=== PATIENT | male | born 1950 | race Caucasian/White ===

== ENCOUNTER 2016-08-20 17:32 | Inpatient (IN) | payer OTHER ==
[~2016-08-20] VITALS: Ht 167.6 cm; Wt 65.1 kg
[2016-08-20] MEDS ORDERED: ACETAMINOPHEN 500 MG TAB PO STA (17:52)
[2016-08-20] MEDS ORDERED: SODIUM CHLORIDE 0.9% 1000ML 1,000 ML IV STA ×2 (17:52)
[2016-08-20] MEDS ORDERED: IBUPROFEN 600 MG TAB PO STA (17:59)
[2016-08-20] MEDS ORDERED: ASPI81TA28 PO (18:34)
[2016-08-20] MEDS ORDERED: CALC625T13 PO (18:34)
[2016-08-20] MEDS ORDERED: GLUCTAB18 PO (18:34)
[2016-08-20] MEDS ORDERED: TURM1CAP4 PO (18:34)
[2016-08-20] MEDS ORDERED: MULT-506 PO (18:34)
[2016-08-20 18:42] LABS: HEMATOCRIT 36.5 % (42-52); MEAN CORPUSCULAR HEMOGLOBIN 31.6 pg (25-34); MEAN CORPUSCULAR HGB CONC 35.9 g/dl (32-36); MEAN PLATELET VOLUME 9.9 fL (7.4-10.4); PLATELET COUNT 200 K/uL (130-400); RED BLOOD COUNT 4.15 M/uL (4.7-6.1); WHITE BLOOD COUNT 13.22 K/uL (4.8-10.8)
[2016-08-20 18:49] LABS: URINE APPEARANCE CLOUDY (CLEAR); URINE COLOR DK YELLOW; URINE EPITHELIAL CELL AUTO >30 /lpf (0-5); URINE NITRITE NEG (NEG); URINE SPECIFIC GRAVITY 1.038 (1.000-1.030); UROBILINOGEN NEG (NEG)
[2016-08-20 18:52] LABS: INR 1.2 (0.9-1.1); PARTIAL THROMBOPLASTIN RATIO 1.1; PROTHROMBIN TIME (PATIENT) 12.5 SECONDS (9.0-12.0)
--- NOTE | 2016-08-20 18:53 | DIAGNOSTIC IMAGING REPORT ---
SINGLE VIEW CHEST CLINICAL HISTORY: Generalized weakness. FINDINGS: An AP, portable, upright chest radiograph is obtained. No prior studies are available for comparison at the time of dictation. The examination is degraded by portable technique and patient rotation. The heart is enlarged and there is atherosclerotic calcification of the thoracic aorta. The pulmonary vasculature is noncongested. There is left basilar airspace consolidation and a small left pleural effusion. Airspace opacities are also questioned at the right apex. No pneumothorax is seen. The bony thorax is grossly intact. There is moderate S-shaped thoracolumbar scoliosis. Calcific tendinopathy is noted in the left shoulder. IMPRESSION: 1. Cardiomegaly without radiographic evidence of congestive failure. 2. There is left basilar airspace consolidation and a small left pleural effusion. The appearance is typical for pneumonia. Clinical correlation will be required. 3. Airspace opacities are also questioned at the right apex. Radiographic follow-up to resolution is recommended. Electronically signed by: Lalo Gilbert M.D. 08/20/2016 6:52 PM Dictated Date/Time: 08/20/2016 6:50 PM
[2016-08-20 18:56] LABS: MANUAL MICROSCOPIC REQUIRED? NO; REVIEW REQ? YES; URINE BILIRUBIN NEG (NEG)
[2016-08-20 18:59] LABS: URINE MUCUS PRESENT (NONE PRSENT); URINE PATH CASTS 0-3 GRANULAR CASTS /lpf (0)
[2016-08-20 19:01] LABS: ALT/SGPT 17 U/L (12-78); AST/SGOT 10 U/L (15-37); BLOOD UREA NITROGEN 19 mg/dl (7-18); BUN/CREATININE RATIO 20.4 (10-20); CARBON DIOXIDE 26 mmol/L (21-32); CHLORIDE 100 mmol/L (98-107); CREATININE 0.92 mg/dl (0.60-1.40); GLUCOSE 107 mg/dl (70-99); MAGNESIUM 1.9 mg/dl (1.8-2.4); POTASSIUM 3.8 mmol/L (3.5-5.1); SODIUM 135 mmol/L (136-145)
[2016-08-20] MEDS ORDERED: LEVAQUIN 750MG / 150ML D5W IV STA (19:03)
[2016-08-20 19:12] LABS: ALKALINE PHOSPHATASE 79 U/L (45-117)
[2016-08-20 19:20] LABS: BASO % 0.1 %; BASO ABS # 0.01 K/uL (0-0.2); COMPLETE YES; IG% 0.4 %; LYMPH % 3.6 %; LYMPH ABS # 0.48 K/uL (1.2-3.4); MONO % 5.7 %; NEUT % 90.2 %
[2016-08-20] MEDS ORDERED: ONDANSETRON INJ 2 MG/ML 2 ML VIAL IV PRN (20:00)
[2016-08-20] MEDS ORDERED: SILD100T PO (20:07)
--- NOTE | 2016-08-20 20:11 | EMERGENCY ROOM VISIT NOTE ---
History Report prepared by Kirill: Ron Schafer Under the Supervision of: Dr. Jasper Davis M.D. First contact with patient: 17:48 Chief Complaint: FLU LIKE SX Stated Complaint: FLU LIKE MUCUS History of Present Illness The patient is a 66 year old male who presents to the Emergency Room with complaints of persistent flu-like symptoms for the past four days. The patient complains of fevers up to 103.5. He has been taking Tylenol, which brings the fevers down to around 101. His last dose was at 1630 this afternoon. He has not had any Ibuprofen. The patient also complains of generalized body aches, headaches, neck pain, sore throat, chills, and a productive cough. The cough produces yellow phlegm. The patient saw white spots in the back of his throat with a flashlight. As per , the patient appeared confused earlier today. His fever was 103 at that time. The patient noted that he was confused while working on a word puzzle and had to put it down. Patient denies LOC, diaphoresis , visual changes, chest pain, breathing difficulties, nausea, vomiting, abdominal pain, back pain, melena, hematochezia, urinary symptoms, numbness, weakness, lymphadenopathy, rash, or other complaints. The patient had a herniorrhaphy on July 16. Source of History: patient, spouse/significant other Onset: four days ago Position: other (global) Quality: other (flu-like symptoms) Timing: other (persistent) Associated Symptoms: + chills, + cough, + fevers, + headache, + neck pain, + sorethroat Review of Systems See HPI for pertinent positives and negatives. A total of ten systems were reviewed and were otherwise negative. Past Medical & Surgical Medical Problems: (1) Bilateral pneumonia (2) Prostate CA Surgical Problems: (1) H/O prostatectomy (2) S/P herniorrhaphy Family History Cancer Heart disease Social History Smoking Status: Former Smoker Marital Status: Housing Status: lives with family Occupation Status: retired Current/Historical Medications Scheduled Aspirin (Aspirin Ec), 81 MG PO DAILY Calcium Polycarbophil (Fiber Tabs), 625 MG PO WM Glucosamine-Chondroitin (Osteo Bi-Flex Regular Str), 1 TAB PO Q 4-DAYS Multivitamin (Multivitamin), 1 TAB PO DAILY Turmeric (Curcuma Longa) (Turmeric), 500 MG PO DAILY Allergies Coded Allergies: No Known Allergies (Unverified , NONE, 12/13/08) Physical Exam Vital Signs Date Time Temp Pulse Resp B/P Pulse Ox O2 Delivery O2 Flow Rate FiO2 08/20/16 19:35 37.2 69 18 115/67 95 Nasal Cannula 2.0 08/20/16 19:21 89 08/20/16 18:32 94 Room Air 08/20/16 17:44 38.0 108 20 110/68 91 Room Air Physical Exam GENERAL: Awake, alert, mildly ill appearing, no distress HEAD: Normocephalic, atraumatic. No edema. EYES: Normal conjunctiva. Sclera non-icteric. EARS: Right TM normal. Left TM normal. NOSE: Mild congestion. OROPHARYNX: Lips, tongue, and mucosa unremarkable. No erythema or exudate. NECK: Supple. No nuchal rigidity. FROM. No adenopathy. Negative jolt accentuation test. RESPIRATORY: CTA bilaterally. No wheezes rales or rhonchi. CARDIAC: Borderline tachycardic rate, normal rhythm. ABDOMEN: Soft, non distended. No tenderness to palpation. NEURO: Normal sensorium. SKIN: No rash or jaundice noted Medical Decision & Procedures ER Provider Diagnostic Interpretation: X-ray: Per my interpretation, radiologist review. SINGLE VIEW CHEST CLINICAL HISTORY: Generalized weakness. FINDINGS: An AP, portable, upright chest radiograph is obtained. No prior studies are available for comparison at the time of dictation. The examination is degraded by portable technique and patient rotation. The heart is enlarged and there is atherosclerotic calcification of the thoracic aorta. The pulmonary vasculature is noncongested. There is left basilar airspace consolidation and a small left pleural effusion. Airspace opacities are also questioned at the right apex. No pneumothorax is seen. The bony thorax is grossly intact. There is moderate S-shaped thoracolumbar scoliosis. Calcific tendinopathy is noted in the left shoulder. IMPRESSION: 1. Cardiomegaly without radiographic evidence of congestive failure. 2. There is left basilar airspace consolidation and a small left pleural effusion. The appearance is typical for pneumonia. Clinical correlation will be required. 3. Airspace opacities are also questioned at the right apex. Radiographic follow-up to resolution is recommended. Electronically signed by: Lalo Gilbert M.D. 08/20/2016 6:52 PM Dictated Date/Time: 08/20/2016 6:50 PM Laboratory Results 08/20/16 18:25 Red Blood Count 4.15, Mean Corpuscular Volume 88.0, Mean Corpuscular Hemoglobin 31.6, Mean Corpuscular Hemoglobin Concent 35.9, Mean Platelet Volume 9.9, Neutrophils (%) (Auto) 90.2, Lymphocytes (%) (Auto) 3.6, Monocytes (%) (Auto) 5.7, Eosinophils (%) (Auto) 0.0, Basophils (%) (Auto) 0.1, Neutrophils # (Auto) 11.93, Lymphocytes # (Auto) 0.48, Monocytes # (Auto) 0.75, Eosinophils # (Auto) 0.00, Basophils # (Auto) 0.01 08/20/16 18:25 Test 08/20/16 18:15 08/20/16 18:25 Influenza Type A Antigen Neg for Influ A (NEG) Influenza Type B Antigen Neg for Influ B (NEG) White Blood Count 13.22 K/uL (4.8-10.8) Red Blood Count 4.15 M/uL (4.7-6.1) Hemoglobin 13.1 g/dL (14.0-18.0) Hematocrit 36.5 % (42-52) Mean Corpuscular Volume 88.0 fL (80-100) Mean Corpuscular Hemoglobin 31.6 pg (25-34) Mean Corpuscular Hemoglobin Concent 35.9 g/dl (32-36) Platelet Count 200 K/uL (130-400) Mean Platelet Volume 9.9 fL (7.4-10.4) Neutrophils (%) (Auto) 90.2 % Lymphocytes (%) (Auto) 3.6 % Monocytes (%) (Auto) 5.7 % Eosinophils (%) (Auto) 0.0 % Basophils (%) (Auto) 0.1 % Neutrophils # (Auto) 11.93 K/uL (1.4-6.5) Lymphocytes # (Auto) 0.48 K/uL (1.2-3.4) Monocytes # (Auto) 0.75 K/uL (0.11-0.59) Eosinophils # (Auto) 0.00 K/uL (0-0.5) Basophils # (Auto) 0.01 K/uL (0-0.2) RDW Standard Deviation 41.0 fL (36.4-46.3) RDW Coefficient of Variation 12.7 % (11.5-14.5) Immature Granulocyte % (Auto) 0.4 % Immature Granulocyte # (Auto) 0.05 K/uL (0.00-0.02) Red Blood Cell Morphology Unremarkable Prothrombin Time 12.5 SECONDS (9.0-12.0) Prothromb Time International Ratio 1.2 (0.9-1.1) Activated Partial Thromboplast Time 28.7 SECONDS (21.0-31.0) Partial Thromboplastin Ratio 1.1 Urine Color DK YELLOW Urine Appearance CLOUDY (CLEAR) Urine pH 5.0 (4.5-7.5) Urine Specific [place] 1.038 (1.000-1.030) Urine Protein 3+ (NEG) Urine Glucose (UA) NEG (NEG) Urine Ketones 2+ (NEG) Urine Occult Blood 3+ (NEG) Urine Nitrite NEG (NEG) Urine Bilirubin NEG (NEG) Urine Urobilinogen NEG (NEG) Urine Leukocyte Esterase NEG (NEG) Urine WBC (Auto) 1-5 /hpf (0-5) Urine RBC (Auto) 0-4 /hpf (0-4) Urine Hyaline Casts (Auto) 5-10 /lpf (0-5) Urine Epithelial Cells (Auto) >30 /lpf (0-5) Urine Bacteria (Auto) NEG (NEG) Urine Renal Epithelial Cells /lpf (0-5) Urine Pathogenic Casts 0-3 GRANULAR CASTS /lpf (0) Urine Mucus PRESENT (NONE PRSENT) Anion Gap 9.0 mmol/L (3-11) Est Creatinine Clear Calc Drug Dose 73.2 ml/min Estimated GFR () 101.5 Estimated GFR (Non- 87.6 BUN/Creatinine Ratio 20.4 (10-20) Calcium Level 9.0 mg/dl (8.5-10.1) Magnesium Level 1.9 mg/dl (1.8-2.4) Total Bilirubin 0.6 mg/dl (0.2-1) Direct Bilirubin 0.2 mg/dl (0-0.2) Aspartate Amino Transf (AST/SGOT) 10 U/L (15-37) Alanine Aminotransferase (ALT/SGPT) 17 U/L (12-78) Alkaline Phosphatase 79 U/L (45-117) Troponin I < 0.015 ng/ml (0-0.045) Total Protein 7.4 gm/dl (6.4-8.2) Albumin 3.0 gm/dl (3.4-5.0) Lipase 97 U/L (73-393) Thyroid Stimulating Hormone (TSH) 1.350 uIu/ml (0.300-4.500) Laboratory results reviewed by me Medications Administered Medications (Trade) Dose Ordered Sig/Jose Eduardo Route Start Time Stop Time Status Last Admin Dose Admin Sodium Chloride 1,000 ml @ 125 mls/hr Q8H STAT IV 08/20/16 17:52 08/21/16 01:51 08/20/16 19:25 125 MLS/HR Sodium Chloride (Nss 1000ml) 1,000 ml @ 999 mls/hr Q1H1M STAT IV 08/20/16 17:52 08/20/16 18:52 DC 08/20/16 18:21 999 MLS/HR Ibuprofen (Motrin Tab) 600 mg NOW STAT PO 08/20/16 17:59 08/20/16 18:00 DC 08/20/16 18:21 600 MG Levofloxacin (Levaquin / D5W) 750 mg NOW STAT IV 08/20/16 19:03 08/20/16 19:04 DC 08/20/16 19:25 750 MG ED Course 1750: The patient was evaluated in room C2b. A complete history and physical exam was performed. 1752: Tylenol 1000 mg PO, NSS 1000 ml @ 999 mls/hr, NSS 1000 ml @ 125 mls/hr. 175: Motrin 600 mg PO. 1903: Levofloxacin 750 mg IV. 1905: Updated the patient. His sats were 90 on RA. Medicine being paged. 1913: Discussed the case with Elly Vargas PA-C, [facility] Hospitalist. The patient will be evaluated. Medical Decision Triage Nursing notes reviewed. The patient's presentation and history were concerning for flulike symptoms. Etiologies such as pneumonia, influenza, viral syndrome, COPD, reactive airway disease, CHF, cardiac ischemia, infections, gastrointestinal, as well as others were entertained. The patient was evaluated. Clinically was doing well. Chest x-ray was concerning for bilateral pneumonia. The patient had blood cultures obtained. CBC showed leukocytosis. I discussed this with the patient. IV Levaquin was ordered. The patient's oxygen saturation was borderline at 90%. The hospitalist was called for further evaluation. The chart was completed utilizing [employer] Speech voice recognition software. Grammatical errors, random word insertions, pronoun errors, and incomplete sentences are an occasional consequence of this system due to software limitations, ambient noise, and hardware issues. Any formal questions or concerns about the content, text, or information contained within the body of this dictation should be directly addressed to the physician for clarification. Consults Time Called: 1904 Consulting Physician: Elly Vargas PA-C, [facility] Hospitalist. Returned Call: 1912 1912: Discussed the case with Elly Vargas PA-C, [facility] Hospitalist. The patient will be evaluated. Impression Primary Impression: Bilateral pneumonia Additional Impression: Fever Scribe Attestation The scribe's documentation has been prepared under my direction and personally reviewed by me in its entirety. I confirm that the note above accurately reflects all work, treatment, procedures, and medical decision making performed by me. Departure Information Dispostion Being Evaluated By Hospitalist Referrals Manolo Zambrano M.D. (PCP) Patient Instructions My [facility] Problem Qualifiers
[2016-08-20] MEDS ORDERED: SODIUM CHLORIDE 0.9% 1000ML 1,000 ML IV SCH (20:15)
--- NOTE | 2016-08-20 20:46 | History and Physical ---
History & Physical Date & Time of Service: Aug 20, 2016 at 20:12 Chief Complaint: Flu Like Mucus Primary Care Physician: Manolo Zambrano M.D. History of Present Illness Source: patient, spouse ( at bedside), clinic records This is a 66 year old male without relevant PMH who presents to the ED with flu like symptoms. Patient became ill 5-6 days ago with sore throat and nasal congestion, then 4 days ago developed fever up to 103.5 which improves with Tylenol but returns once the Tylenol wears off. Then since 2-3 days ago patient has cough productive of yellow-green sputum. He also reports associated chills, fatigue, [place], neck pain, diffuse myalgias, occasional mild nausea. Then today around 2 pm patient became confused in that he was mixed up while discussing medications with his and again while trying to do a crossword puzzle. He did have a fever around 103 when she checked his temp at 4 pm. Currently patient is able to answer my orientation questions correctly but states his answers are mildly slowed from baseline. Appetite has been poor- just drinking small amount of fluids. Pt had no BM for a few days attributed to poor PO intake then this morning had loose but formed BM. States urine is dark. Denies neck stiffness, focal weakness or numbness, facial droop, speech or swallowing difficulty, sinus pressure, ear ache, chest pain, SOB, abdominal pain , vomiting, dysuria, urinary frequency, edema, calf pain. Denies sick contact, recent travel, antibiotics, or hospitalization. He underwent outpatient L inguinal herniography in early July which he states is well healed. Past Medical/Surgical History Medical Problems: (1) Dyslipidemia Status: Chronic (2) Prostate CA Status: Resolved Surgical Problems: (1) H/O prostatectomy Status: Resolved (2) S/P herniorrhaphy Status: Resolved (3) S/P tonsillectomy and adenoidectomy Status: Chronic Family History Cancer FATHER (prostate CA) Heart disease FATHER Hypertension FATHER Social History Smoking Status: Former Smoker (quit 1973. prior 1.5 ppd x 4 years) Alcohol Use: 4 oz of wine per day Drug Use: none Marital Status: Housing status: lives with significant other Occupational Status: retired Multi-Drug Resistant Organisms History of MDRO: No Allergies Coded Allergies: No Known Allergies (Unverified , NONE, 12/13/08) Home Medications Scheduled Aspirin (Aspirin Ec), 81 MG PO DAILY Calcium Polycarbophil (Fiber Tabs), 625 MG PO WM Glucosamine-Chondroitin (Osteo Bi-Flex Regular Str), 1 TAB PO DAILY Multivitamin (Multivitamin), 1 TAB PO DAILY Sildenafil Citrate (Viagra), 100 MG PO PRN Review of Systems Ten point ROS performed with pertinent positives and negatives noted in HPI. Physical Exam Vital Signs Date Time Temp Pulse Resp B/P Pulse Ox O2 Delivery O2 Flow Rate FiO2 08/20/16 19:35 37.2 69 18 115/67 95 Nasal Cannula 2.0 08/20/16 19:21 89 08/20/16 18:32 94 Room Air 08/20/16 17:44 38.0 108 20 110/68 91 Room Air General Appearance: WD/WN, no apparent distress, + pertinent finding (pleasant alert 66 year old male, not in distress) Head: normocephalic, atraumatic Eyes: normal inspection, PERRL, EOMI, sclerae normal ENT: hearing grossly normal, TMs normal, pharynx normal, + pertinent finding ( no sinus tenderness) Neck: supple, trachea midline, + pertinent finding (no stiffness on exam) Respiratory/Chest: no respiratory distress, no accessory muscle use, + pertinent finding (coarse breath sounds throughout) Cardiovascular: regular rate, rhythm, no murmur, normal peripheral pulses Abdomen/GI: normal bowel sounds, non tender, soft Extremities/Musculoskelatal: no calf tenderness, normal capillary refill, no pedal edema Neurologic/Psych: prop drawer II-XII nml as tested, no motor/sensory deficits, alert, normal mood/affect, oriented x 3 Skin: normal color, warm/dry Diagnostics Laboratory Results Results Past 24 Hours Test 08/20/16 18:15 08/20/16 18:25 Range/Units Influenza Type A Antigen Neg for Influ A NEG Influenza Type B Antigen Neg for Influ B NEG White Blood Count 13.22 4.8-10.8 K/uL Red Blood Count 4.15 4.7-6.1 M/uL Hemoglobin 13.1 14.0-18.0 g/dL Hematocrit 36.5 42-52 % Mean Corpuscular Volume 88.0 80-100 fL Mean Corpuscular Hemoglobin 31.6 25-34 pg Mean Corpuscular Hemoglobin Concent 35.9 32-36 g/dl Platelet Count 200 130-400 K/uL Mean Platelet Volume 9.9 7.4-10.4 fL Neutrophils (%) (Auto) 90.2 % Lymphocytes (%) (Auto) 3.6 % Monocytes (%) (Auto) 5.7 % Eosinophils (%) (Auto) 0.0 % Basophils (%) (Auto) 0.1 % Neutrophils # (Auto) 11.93 1.4-6.5 K/uL Lymphocytes # (Auto) 0.48 1.2-3.4 K/uL Monocytes # (Auto) 0.75 0.11-0.59 K/uL Eosinophils # (Auto) 0.00 0-0.5 K/uL Basophils # (Auto) 0.01 0-0.2 K/uL RDW Standard Deviation 41.0 36.4-46.3 fL RDW Coefficient of Variation 12.7 11.5-14.5 % Immature Granulocyte % (Auto) 0.4 % Immature Granulocyte # (Auto) 0.05 0.00-0.02 K/uL Red Blood Cell Morphology Unremarkable Prothrombin Time 12.5 9.0-12.0 SECONDS Prothromb Time International Ratio 1.2 0.9-1.1 Activated Partial Thromboplast Time 28.7 21.0-31.0 SECONDS Partial Thromboplastin Ratio 1.1 Urine Color DK YELLOW Urine Appearance CLOUDY CLEAR Urine pH 5.0 4.5-7.5 Urine Specific [place] 1.038 1.000-1.030 Urine Protein 3+ NEG Urine Glucose (UA) NEG NEG Urine Ketones 2+ NEG Urine Occult Blood 3+ NEG Urine Nitrite NEG NEG Urine Bilirubin NEG NEG Urine Urobilinogen NEG NEG Urine Leukocyte Esterase NEG NEG Urine WBC (Auto) 1-5 0-5 /hpf Urine RBC (Auto) 0-4 0-4 /hpf Urine Hyaline Casts (Auto) 5-10 0-5 /lpf Urine Epithelial Cells (Auto) >30 0-5 /lpf Urine Bacteria (Auto) NEG NEG Urine Renal Epithelial Cells 0-5 /lpf Urine Pathogenic Casts 0-3 GRANULAR CASTS 0 /lpf Urine Mucus PRESENT NONE PRSENT Sodium Level 135 136-145 mmol/L Potassium Level 3.8 3.5-5.1 mmol/L Chloride Level 100 98-107 mmol/L Carbon Dioxide Level 26 21-32 mmol/L Anion Gap 9.0 3-11 mmol/L Blood Urea Nitrogen 19 7-18 mg/dl Creatinine 0.92 0.60-1.40 mg/dl Est Creatinine Clear Calc Drug Dose 73.2 ml/min Estimated GFR () 101.5 Estimated GFR (Non- 87.6 BUN/Creatinine Ratio 20.4 10-20 Random Glucose 107 70-99 mg/dl Calcium Level 9.0 8.5-10.1 mg/dl Magnesium Level 1.9 1.8-2.4 mg/dl Total Bilirubin 0.6 0.2-1 mg/dl Direct Bilirubin 0.2 0-0.2 mg/dl Aspartate Amino Transf (AST/SGOT) 10 15-37 U/L Alanine Aminotransferase (ALT/SGPT) 17 12-78 U/L Alkaline Phosphatase 79 45-117 U/L Troponin I < 0.015 0-0.045 ng/ml Total Protein 7.4 6.4-8.2 gm/dl Albumin 3.0 3.4-5.0 gm/dl Lipase 97 73-393 U/L Thyroid Stimulating Hormone (TSH) 1.350 0.300-4.500 uIu/ml Microbiology Results 08/20/16 Blood Culture, Received Pending 08/20/16 Blood Culture, Received Pending 08/20/16 Urine Culture, Received Pending Diagnostic Radiology SINGLE VIEW CHEST CLINICAL HISTORY: Generalized weakness. FINDINGS: An AP, portable, upright chest radiograph is obtained. No prior studies are available for comparison at the time of dictation. The examination is degraded by portable technique and patient rotation. The heart is enlarged and there is atherosclerotic calcification of the thoracic aorta. The pulmonary vasculature is noncongested. There is left basilar airspace consolidation and a small left pleural effusion. Airspace opacities are also questioned at the right apex. No pneumothorax is seen. The bony thorax is grossly intact. There is moderate S-shaped thoracolumbar scoliosis. Calcific tendinopathy is noted in the left shoulder. IMPRESSION: 1. Cardiomegaly without radiographic evidence of congestive failure. 2. There is left basilar airspace consolidation and a small left pleural effusion. The appearance is typical for pneumonia. Clinical correlation will be required. 3. Airspace opacities are also questioned at the right apex. Radiographic follow-up to resolution is recommended. EKG NSR, 99 bpm, nonspecific T wave abnormality in lead III, no previous EKG for comparison Impression Assessment and Plan BILATERAL PNEUMONIA Initially had HR > 90 which resolved, + fever of 38.0; leukocytosis (WBC 13k); BP stable; POC lactate WNL Does not appear to be septic Had borderline O2 sats on RA; placed on nasal cannula 2 liters and saturating 94 % CXR- cardiomegaly, left base consolidation and small L pleural effusion, ? airspace opacities right apex; radiographic follow up to resolution is recommended Treated with Levaquin and IVF's in ER Blood cultures pending Check sputum culture Continue empiric Levaquin Supplemental O2 per protocol and wean when able Continue on IVF's at 80cc/hour x 1 liter for dehydration/ poor PO intake Check f/u CXR METABOLIC ENCEPHALOPATHY Secondary to above infection No focal signs or symptoms DYSLIPIDEMIA Not on medication F/u with PCP DVT PROPHYLAXIS Lovenox SQ FULL CODE DISPOSITION Follows with Dr. Zambrano for primary care Patient seen in collaboration with Dr. Live. Please see her addendum. I have seen, examined and discussed this patient with Loulou Vargas and I agree with the above note. Patient presented with productive cough and fever. Vitals reviewed. PE: General- awake; alert; NAD Eyes- EOMI; no scleral icterus Neck- no stridor; trachea midline Lungs- faint left basilar crackles/rubs Heart- RRR; no m/r/g Abdomen- soft; NTND; nBS Back- no gross abnormalities Extremities- no c/c/e; no deformity Neuro- no focal deficits Skin- no appreciable rash or bruise Labs reviewed. CXR with pneumonia. Pneumonia: Cultures pending. Continue levofloxacin. Repeat CXR in am. Possible discharge home tomorrow pending clinical status. VTE Prophylaxis VTE Risk Assessment Done? Y/N: Yes Risk Level: Moderate
[2016-08-20 21:25] VITALS: BP 117/70; PULSE 88; TEMP 37.1; O2SAT 96; Ht 167.6 cm; Wt 65.1 kg
[2016-08-20] MEDS: ENOXAPARIN 40 MG/0.4 ML SYR SQ SCH (22:30)
[2016-08-20 22:37] VITALS: BP 111/71; PULSE 77; TEMP 36.9; O2SAT 95
[2016-08-21] VITALS (9 sets, daily range): BP systolic 105–128; BP diastolic 66–78; PULSE 60–90; TEMP 36.6–37.8; O2SAT 92–96
[2016-08-21 00:34] LABS: INFLUENZA A PCR Neg for Influ A (NEG); INFLUENZA B PCR Neg for Influ B (NEG)
[2016-08-21 05:44] LABS: HEMATOCRIT 34.2 % (42-52); MEAN CELL VOLUME 88.1 fL (80-100); MEAN CORPUSCULAR HEMOGLOBIN 30.4 pg (25-34); MEAN CORPUSCULAR HGB CONC 34.5 g/dl (32-36); MEAN PLATELET VOLUME 9.8 fL (7.4-10.4); PLATELET COUNT 187 K/uL (130-400); RED BLOOD COUNT 3.88 M/uL (4.7-6.1); WHITE BLOOD COUNT 13.21 K/uL (4.8-10.8)
[2016-08-21 06:22] LABS: BUN/CREATININE RATIO 20.6 (10-20); CALCIUM 8.4 mg/dl (8.5-10.1); CREATININE 0.74 mg/dl (0.60-1.40)
[2016-08-21] MEDS: ASPIRIN 81 MG ECTAB PO SCH (07:56)
--- NOTE | 2016-08-21 09:49 | DIAGNOSTIC IMAGING REPORT ---
CHEST 2 VIEWS ROUTINE CLINICAL HISTORY: f/u pnea dyspnea. Pneumonia. COMPARISON STUDY: 08/20/2016 FINDINGS: Mild improvement left basilar parenchymal infiltrate. No significant change in increased density right apex. Lungs otherwise appear clear. IMPRESSION: 1. Slight improvement in parenchymal infiltrative change left base. 2. Persistent infiltrative change versus potential nodular pathology right apex. 3. CT of the chest suggested as follow-up. Electronically signed by: Ulises Perez M.D. 08/21/2016 9:47 AM Dictated Date/Time: 08/21/2016 9:46 AM
[2016-08-21] MEDS ORDERED: ACETAMINOPHEN 325 MG TAB PO PRN (10:15)
--- NOTE | 2016-08-21 12:19 | Progress Note ---
Subjective Date of Service: Aug 21, 2016. Subjective Pt evaluation today including: conversation w/ patient, physical exam, lab review, review of studies, review of inpatient medication list Saw/examined the patient in room 256 He presented due to fevers and confusion at home Presented here and found to have bilateral pneumonia Feeling okay this morning, +cough at times, weakness persists - he is regaining his appetite today Problem List Medical Problems: (1) Fever Status: Acute Review of Systems Constitutional: + chills, + fever, + weakness Respiratory: + cough, No dyspnea at rest, No dyspnea on exertion, No hemoptysis , No shortness of breath, No sputum, No wheezing Cardiac: No chest pain, No edema, No orthopnea, No palpitations Abdomen: No diarrhea, No nausea, No pain, No vomiting Medications Current Inpatient Medications Medications (Trade) Dose Ordered Sig/Jose Eduardo Route Start Time Stop Time Status Last Admin Dose Admin Enoxaparin Sodium (Lovenox Inj) 40 mg Q24H SQ 08/20/16 21:00 09/19/16 20:59 Ondansetron HCl 4 mg 4 mg Q6H PRN IV 08/20/16 20:00 09/19/16 19:59 Levofloxacin/Prmx (Levaquin / D5W/ Premixed D5W) 150 ml @ 100 mls/hr Q24H IV 08/21/16 19:00 08/26/16 20:29 Aspirin (Ecotrin Tab) 81 mg DAILY PO 08/21/16 09:00 09/20/16 08:59 08/21/16 07:56 81 MG Acetaminophen (Tylenol Tab) 650 mg Q4H PRN PO 08/21/16 10:15 09/20/16 10:14 Objective Vital Signs Date Time Temp Pulse Resp B/P Pulse Ox O2 Delivery O2 Flow Rate FiO2 08/21/16 11:50 37.4 60 25 128/78 96 Room Air 08/21/16 10:11 95 Room Air 08/21/16 09:33 Nasal Cannula 2.0 08/21/16 08:02 37.2 08/21/16 08:00 94 Nasal Cannula 2.0 08/21/16 07:56 37.8 66 20 118/78 94 Nasal Cannula 2.0 08/21/16 00:33 Nasal Cannula 2.0 08/21/16 00:00 36.6 73 20 105/68 95 Room Air 08/20/16 22:37 36.9 77 17 111/71 95 Nasal Cannula 2.0 08/20/16 21:25 37.1 88 18 117/70 96 Room Air 08/20/16 20:39 37.1 88 18 117/70 96 Room Air 2.0 08/20/16 19:35 37.2 69 18 115/67 95 Nasal Cannula 2.0 08/20/16 19:21 89 08/20/16 18:32 94 Room Air 08/20/16 17:44 38.0 108 20 110/68 91 Room Air Physical Exam General Appearance: no apparent distress Respiratory/Chest: chest non-tender, lungs clear, normal breath sounds, no respiratory distress, no accessory muscle use Cardiovascular: regular rate, rhythm, no edema, no murmur Abdomen: normal bowel sounds, non tender, soft Extremities: normal inspection, no pedal edema Laboratory Results Last 24 Hours Test 08/20/16 18:15 08/20/16 18:25 08/20/16 22:15 08/21/16 05:19 Influenza Type A Antigen Neg for Influ A Influenza Type B Antigen Neg for Influ B White Blood Count 13.22 K/uL 13.21 K/uL Red Blood Count 4.15 M/uL 3.88 M/uL Hemoglobin 13.1 g/dL 11.8 g/dL Hematocrit 36.5 % 34.2 % Mean Corpuscular Volume 88.0 fL 88.1 fL Mean Corpuscular Hemoglobin 31.6 pg 30.4 pg Mean Corpuscular Hemoglobin Concent 35.9 g/dl 34.5 g/dl Platelet Count 200 K/uL 187 K/uL Mean Platelet Volume 9.9 fL 9.8 fL Neutrophils (%) (Auto) 90.2 % Lymphocytes (%) (Auto) 3.6 % Monocytes (%) (Auto) 5.7 % Eosinophils (%) (Auto) 0.0 % Basophils (%) (Auto) 0.1 % Neutrophils # (Auto) 11.93 K/uL Lymphocytes # (Auto) 0.48 K/uL Monocytes # (Auto) 0.75 K/uL Eosinophils # (Auto) 0.00 K/uL Basophils # (Auto) 0.01 K/uL RDW Standard Deviation 41.0 fL 41.5 fL RDW Coefficient of Variation 12.7 % 12.9 % Immature Granulocyte % (Auto) 0.4 % Immature Granulocyte # (Auto) 0.05 K/uL Red Blood Cell Morphology Unremarkable Prothrombin Time 12.5 SECONDS Prothromb Time International Ratio 1.2 Activated Partial Thromboplast Time 28.7 SECONDS Partial Thromboplastin Ratio 1.1 Urine Color DK YELLOW Urine Appearance CLOUDY Urine pH 5.0 Urine Specific [place] 1.038 Urine Protein 3+ Urine Glucose (UA) NEG Urine Ketones 2+ Urine Occult Blood 3+ Urine Nitrite NEG Urine Bilirubin NEG Urine Urobilinogen NEG Urine Leukocyte Esterase NEG Urine WBC (Auto) 1-5 /hpf Urine RBC (Auto) 0-4 /hpf Urine Hyaline Casts (Auto) 5-10 /lpf Urine Epithelial Cells (Auto) >30 /lpf Urine Bacteria (Auto) NEG Urine Renal Epithelial Cells /lpf Urine Pathogenic Casts 0-3 GRANULAR CASTS /lpf Urine Mucus PRESENT Sodium Level 135 mmol/L 139 mmol/L Potassium Level 3.8 mmol/L 4.0 mmol/L Chloride Level 100 mmol/L 105 mmol/L Carbon Dioxide Level 26 mmol/L 26 mmol/L Anion Gap 9.0 mmol/L 8.0 mmol/L Blood Urea Nitrogen 19 mg/dl 15 mg/dl Creatinine 0.92 mg/dl 0.74 mg/dl Est Creatinine Clear Calc Drug Dose 73.2 ml/min 91.0 ml/min Estimated GFR () 101.5 113.0 Estimated GFR (Non- 87.6 97.5 BUN/Creatinine Ratio 20.4 20.6 Random Glucose 107 mg/dl 97 mg/dl Calcium Level 9.0 mg/dl 8.4 mg/dl Magnesium Level 1.9 mg/dl 2.0 mg/dl Total Bilirubin 0.6 mg/dl Direct Bilirubin 0.2 mg/dl Aspartate Amino Transf (AST/SGOT) 10 U/L Alanine Aminotransferase (ALT/SGPT) 17 U/L Alkaline Phosphatase 79 U/L Troponin I < 0.015 ng/ml Total Protein 7.4 gm/dl Albumin 3.0 gm/dl Lipase 97 U/L Thyroid Stimulating Hormone (TSH) 1.350 uIu/ml Hepatitis C Antibody Screen NEG Influenza Type A (RT-PCR) Neg for Influ A Influenza Type B (RT-PCR) Neg for Influ B Assessment and Plan This is a 66 year old male with no significant PMH presents with bilateral pneumonia Bilateral Pneumonia CXR shows left basilar consolidation typical for pneumonia also shows a right apex nodularity possible Chest CT if condition does not improve clinically improving WBC ~ 13k hemodynamically stable started on Levaquin on admission, will continue this via IV IVFs stopped and encouraged PO intake DVT ppx Lovenox FULL CODE
[2016-08-21] MEDS ORDERED: NURSING VERBAL MED ORDER ONE (18:45)
[2016-08-21] MEDS ORDERED: LEVOFLOXACIN / D5W 750 MG in PREMIXED IN D5W 150 ML IV SCH (19:00)
[2016-08-21] MEDS ORDERED: FIBER THERAPY PO PRN (19:00)
[2016-08-21] MEDS: FIBER THERAPY PO PRN (19:22)
[2016-08-21] MEDS: ENOXAPARIN 40 MG/0.4 ML SYR SQ SCH (21:00)
[2016-08-22] VITALS: BP 127/77; PULSE 89; TEMP 37.1; O2SAT 92
[2016-08-22] MEDS ORDERED: NURSING DECISION MEDICATION ORDER SCH (00:30)
[2016-08-22] MEDS ORDERED: COUGH DROP (SUGAR FREE) LOZ 24 LOZ/1 BOX PO PRN (01:00)
[2016-08-22 07:18] LABS: HEMATOCRIT 33.4 % (42-52); MEAN CELL VOLUME 87.7 fL (80-100); MEAN CORPUSCULAR HEMOGLOBIN 31.2 pg (25-34); MEAN CORPUSCULAR HGB CONC 35.6 g/dl (32-36); PLATELET COUNT 247 K/uL (130-400); RED BLOOD COUNT 3.81 M/uL (4.7-6.1); WHITE BLOOD COUNT 9.77 K/uL (4.8-10.8)
[2016-08-22 07:26] VITALS: BP 129/80; PULSE 86; TEMP 36.8; O2SAT 93
[2016-08-22 07:47] LABS: BUN/CREATININE RATIO 17.3 (10-20); CALCIUM 8.7 mg/dl (8.5-10.1); CREATININE 0.73 mg/dl (0.60-1.40); POTASSIUM 3.8 mmol/L (3.5-5.1)
[2016-08-22] MEDS: FIBER THERAPY PO PRN ×2 (08:11→11:45)
[2016-08-22] MEDS: ASPIRIN 81 MG ECTAB PO SCH (08:11)
[2016-08-22 14:51] VITALS: BP 129/80; PULSE 86; TEMP 36.8; O2SAT 93
--- NOTE | 2016-08-22 15:28 | Progress Note ---
Subjective Date of Service: Aug 22, 2016. Subjective Pt evaluation today including: conversation w/ patient, physical exam, lab review, review of studies, review of inpatient medication list Saw/examined the patient in room 256 Doing well today, no fevers/chills, cough persists weakness improved, no other issues Problem List Medical Problems: (1) Fever Status: Acute Review of Systems Constitutional: No chills, No fever Respiratory: + cough, + sputum, No dyspnea at rest, No dyspnea on exertion, No hemoptysis, No shortness of breath, No wheezing Cardiac: No chest pain, No edema, No palpitations Abdomen: No GI bleeding, No constipation, No diarrhea, No nausea, No pain, No vomiting Musculoskeletal: No calf pain, No joint pain, No muscle pain, No swelling Heme: No abnormal bleeding/bruising Medications Current Inpatient Medications Medications (Trade) Dose Ordered Sig/Jose Eduardo Route Start Time Stop Time Status Last Admin Dose Admin Enoxaparin Sodium (Lovenox Inj) 40 mg Q24H SQ 08/20/16 21:00 09/19/16 20:59 Ondansetron HCl (Zofran Inj) 4 mg Q6H PRN IV 08/20/16 20:00 09/19/16 19:59 Aspirin (Ecotrin Tab) 81 mg DAILY PO 08/21/16 09:00 09/20/16 08:59 08/22/16 08:11 81 MG Acetaminophen (Tylenol Tab) 650 mg Q4H PRN PO 08/21/16 10:15 09/20/16 10:14 08/21/16 15:13 650 MG Non-Formulary Medication (Non-Formulary Patient'S Own Med) 2 ea 6XDQ3H PRN PO 08/21/16 19:00 09/20/16 18:59 08/22/16 11:45 2 EA Menthol ([place]) 1 fox PRN PRN PO 08/22/16 01:00 09/21/16 00:59 Levofloxacin (Levaquin Tab) 750 mg DAILY@1800 PO 08/22/16 18:00 08/26/16 20:29 Objective Vital Signs Date Time Temp Pulse Resp B/P Pulse Ox O2 Delivery O2 Flow Rate FiO2 08/22/16 14:51 36.8 86 20 93 Room Air 08/22/16 10:04 Room Air 08/22/16 07:26 36.8 86 20 129/80 93 Room Air 08/22/16 00:00 Room Air 08/22/16 00:00 37.1 89 20 127/77 92 Room Air 08/21/16 16:23 36.9 08/21/16 16:00 Room Air 08/21/16 15:31 37.5 82 16 114/66 94 Room Air Physical Exam General Appearance: no apparent distress Respiratory/Chest: chest non-tender, lungs clear, normal breath sounds, no respiratory distress, no accessory muscle use Cardiovascular: regular rate, rhythm, no edema, no murmur Laboratory Results Last 24 Hours Test 08/22/16 06:35 White Blood Count 9.77 K/uL Red Blood Count 3.81 M/uL Hemoglobin 11.9 g/dL Hematocrit 33.4 % Mean Corpuscular Volume 87.7 fL Mean Corpuscular Hemoglobin 31.2 pg Mean Corpuscular Hemoglobin Concent 35.6 g/dl RDW Standard Deviation 42.4 fL RDW Coefficient of Variation 13.2 % Platelet Count 247 K/uL Mean Platelet Volume 10.0 fL Sodium Level 140 mmol/L Potassium Level 3.8 mmol/L Chloride Level 106 mmol/L Carbon Dioxide Level 26 mmol/L Anion Gap 8.0 mmol/L Blood Urea Nitrogen 13 mg/dl Creatinine 0.73 mg/dl Est Creatinine Clear Calc Drug Dose 92.2 ml/min Estimated GFR () 113.6 Estimated GFR (Non- 98.0 BUN/Creatinine Ratio 17.3 Random Glucose 94 mg/dl Calcium Level 8.7 mg/dl Assessment and Plan This is a 66 year old male with no significant PMH presents with bilateral pneumonia Bilateral Pneumonia 08/27 clinically patient feeling better afebrile WBC wnl patient to be discharged today will switch IV Levaquin to PO Levaquin for a total of 10 days CXR Persistent infiltrative change versus potential nodular pathology right apex Outpatient CT chest may be needed after course of abx. 08/26 CXR shows left basilar consolidation typical for pneumonia also shows a right apex nodularity possible Chest CT if condition does not improve clinically improving WBC ~ 13k hemodynamically stable started on Levaquin on admission, will continue this via IV IVFs stopped and encouraged PO intake DVT ppx Lovenox FULL CODE
[2016-08-22] MEDS ORDERED: LVQ750 PO (15:29)
--- NOTE | 2016-08-22 15:30 | Discharge Instructions ---
Discharge Instructions Date of Service Aug 22, 2016. Admission Reason for Admission: Bilateral Pneumonia Discharge Discharge Diagnosis / Problem: Bilateral Pneumonia Discharge Goals Goal(s): Decrease discomfort, Improve function Activity Recommendations Activity Limitations: resume your previous activity . Instructions / Follow-Up Instructions / Follow-Up Please follow-up with Dr. Zambrano on August 27 @ 12:50PM You will be sent home with levaquin (antibiotic) for 8 days to complete a 10 day course outpatient chest CT scan may be needed after course of antibiotics outpatient anemia w/up after infection is cleared Current Hospital Diet Patient's current hospital diet: Regular Diet Discharge Diet Recommended Diet: Regular Diet Pending Studies Studies pending at discharge: no Medical Emergencies . Who to Call and When: Medical Emergencies: If at any time you feel your situation is an emergency, please call 911 immediately. . Non-Emergent Contact Non-Emergency issues call your: Primary Care Provider . . "Provider Documentation" section prepared by Bridget Santamaria. VTE Core Measure Inpt VTE Proph given/why not?: Enoxaparin (Lovenox)SQ
--- NOTE | 2016-08-22 15:33 | Discharge Summary ---
Discharge Summary Date of Service Aug 22, 2016. Discharge Summary Admission Date: Aug 20, 2016 at 20:00 Discharge Date: Aug 22, 2016 Discharge Disposition: Home Principal Diagnosis: Bilateral Pneumonia Medication Reconciliation New Medications: Levofloxacin (Levofloxacin) 750 Mg Tab 750 MG PO DAILY@1800 for 8 Days, #8 TAB Continued Medications: Aspirin (Aspirin Ec) 81 Mg Tab 81 MG PO DAILY Calcium Polycarbophil (Fiber Tabs) 625 Mg Tab 625 MG PO WM Glucosamine-Chondroitin (Osteo Bi-Flex Regular Str) 1 Tab Tab 1 TAB PO DAILY Multivitamin (Multivitamin) Tab 1 TAB PO DAILY, TAB Sildenafil Citrate (Viagra) 100 Mg Tab 100 MG PO PRN for intercourse, TAB Admission Information HPI (per Admitting provider): This is a 66 year old male without relevant PMH who presents to the ED with flu like symptoms. Patient became ill 5-6 days ago with sore throat and nasal congestion, then 4 days ago developed fever up to 103.5 which improves with Tylenol but returns once the Tylenol wears off. Then since 2-3 days ago patient has cough productive of yellow-green sputum. He also reports associated chills, fatigue, [place], neck pain, diffuse myalgias, occasional mild nausea. Then today around 2 pm patient became confused in that he was mixed up while discussing medications with his and again while trying to do a crossword puzzle. He did have a fever around 103 when she checked his temp at 4 pm. Currently patient is able to answer my orientation questions correctly but states his answers are mildly slowed from baseline. Appetite has been poor- just drinking small amount of fluids. Pt had no BM for a few days attributed to poor PO intake then this morning had loose but formed BM. States urine is dark. Denies neck stiffness, focal weakness or numbness, facial droop, speech or swallowing difficulty, sinus pressure, ear ache, chest pain, SOB, abdominal pain , vomiting, dysuria, urinary frequency, edema, calf pain. Denies sick contact, recent travel, antibiotics, or hospitalization. He underwent outpatient L inguinal herniography in early July which he states is well healed. Physical Exam (per Admitting): General Appearance: WD/WN, no apparent distress, + pertinent finding ( pleasant alert 66 year old male, not in distress) Head: normocephalic, atraumatic Eyes: normal inspection, PERRL, EOMI, sclerae normal ENT: hearing grossly normal, TMs normal, pharynx normal, + pertinent finding (no sinus tenderness) Neck: supple, trachea midline, + pertinent finding (no stiffness on exam) Respiratory/Chest: no respiratory distress, no accessory muscle use, + pertinent finding (coarse breath sounds throughout) Cardiovascular: regular rate, rhythm, no murmur, normal peripheral pulses Abdomen/GI: normal bowel sounds, non tender, soft Extremities/Musculoskelatal: no calf tenderness, normal capillary refill, no pedal edema Neurologic/Psych: independent driver II-XII nml as tested, no motor/sensory deficits, alert , normal mood/affect, oriented x 3 Skin: normal color, warm/dry Hospital Course This is a 66 year old male with no significant PMH presents with bilateral pneumonia Bilateral Pneumonia 08/27 clinically patient feeling better afebrile WBC wnl patient to be discharged today will switch IV Levaquin to PO Levaquin for a total of 10 days CXR Persistent infiltrative change versus potential nodular pathology right apex Outpatient CT chest may be needed after course of abx. 08/26 CXR shows left basilar consolidation typical for pneumonia also shows a right apex nodularity possible Chest CT if condition does not improve clinically improving WBC ~ 13k hemodynamically stable started on Levaquin on admission, will continue this via IV IVFs stopped and encouraged PO intake DVT ppx Lovenox FULL CODE Total time spent on discharge = 45 minutes This includes examination of the patient, discharge planning, medication reconciliation, and communication with other providers. Discharge Instructions Please follow-up with Dr. Zambrano on August 27 @ 12:50PM You will be sent home with levaquin (antibiotic) for 8 days to complete a 10 day course outpatient chest CT scan may be needed after course of antibiotics outpatient anemia w/up after infection is cleared
[2016-08-22] MEDS ORDERED: LEVOFLOXACIN 750 MG TAB PO SCH (18:00)
== END 2016-08-22 16:06 | disposition home or self-care (01) | DRG 193 ==
LOC: ENRESERVTM → ENRESERVDT → C.EDB 17:34 → C.MS2W 20:00 → EDBEDREQTM 20:26 → EDBEDREQSVC 20:26
PROVIDERS: ADMIT Internal Medicine; ATTEND Family Medicine
DX: J18.9 Pneumonia, unspecified organism (principal); G93.41 Metabolic encephalopathy; J90 Pleural effusion, not elsewhere classified; E86.0 Dehydration; E78.5 Hyperlipidemia, unspecified; Z87.891 Personal history of nicotine dependence; Z79.82 Long term (current) use of aspirin; Z79.899 Other long term (current) drug therapy